=== PATIENT | male | born 1930 | race Caucasian/White ===

== ENCOUNTER 2016-11-26 13:51 | Emergency (ER) | payer MEDICARE, OTHER ==
[~2016-11-26 13:51] MED LIST: ASPIRIN PO; BENZONATATE PO; CARDIZEM CD PO; DILTIAZEM PO; FINASTERIDE PO; FINASTERIDE5 MG; GLUCOTROL PO; KCL PO; KEFLEX500 M1 PO; KEFLEX500 MG PO; LASIX PO; LIPITOR PO; LISINOPRIL PO; METFORMIN PO; NATEGLINIDE PO; POTASSIUM PO; TOPROL PO; TOPROL XL PO; UROXATRAL PO; UROXATRAL10 MG PO; WARFARIN PO; ZITHROMAX PO; ZOCOR PO
[2016-11-26] MEDS ORDERED: METFORMIN PO (14:01)
[2016-11-26] MEDS ORDERED: TOPROL XL100 MG PO (14:27)
[2016-11-26 15:12] LABS: BASOPHIL% 0.7 % (0-2.5); EOSINOPHIL# 0.2 X10e3 (0-0.7); EOSINOPHIL% 2.7 % (0.0-7.0); HEMOGLOBIN 9.6 gm/dL (13.0-16.0); LYMPHOCYTE# 0.7 X10e3 (1.0-3.5); LYMPHOCYTE% 12.7 % (17.0-45.0); MEAN CORPUSCULAR HEMOGLOBIN 26.9 PG (28-34); MEAN CORPUSCULAR HGB CONC 33.2 g/dL (30-36); MEAN PLATELET VOLUME 8.8 FL (6.5-11.5); MONOCYTE# 0.6 X10e3 (0-1.0); MONOCYTE% 9.7 % (3.0-12.0); NEUTROPHIL# 4.3 X10e3 (1.5-7.1); NEUTROPHIL% 74.2 % (40-75); PLATELET COUNT 216 X10e3 (140-420); RED BLOOD COUNT 3.58 X10e (3.90-5.60); RED CELL DISTRIBUTION WIDTH 16.7 % (11.0-15.5); WHITE BLOOD COUNT 5.9 X10e3 (4.0-10.5)
[2016-11-26 15:25] LABS: DIFF IND NO
[2016-11-26 15:27] LABS: INR 4.2; PROTHROMBIN TIME (PATIENT) 48.3 SECONDS (9.5-12.4)
[2016-11-26 15:34] LABS: BUN/CREATININE RATIO 16.66; CALCIUM SERUM 8.7 mg/dL (8.4-10.2); CREATININE SERUM 1.2 mg/dL (0.6-1.4); GLOM FILT RATE Estimated 54.1 mL/min (>60); POTASSIUM 4.1 mmol/L (3.5-5.1); URIC ACID 7.5 mg/dL (2.6-7.2)
== END 2016-11-26 16:46 | disposition home or self-care (01) ==
LOC: SED 13:51
PROVIDERS: Emergency Medicine
DX: L03.115 Cellulitis of right lower limb (principal); M10.9 Gout, unspecified; D64.9 Anemia, unspecified; I48.91 Unspecified atrial fibrillation; E11.9 Type 2 diabetes mellitus without complications; E78.5 Hyperlipidemia, unspecified; Z95.1 Presence of aortocoronary bypass graft; Z90.49 Acquired absence of other specified parts of digestive tract; Z79.899 Other long term (current) drug therapy; Z79.84 Long term (current) use of oral hypoglycemic drugs
CPT/HCPCS: 36415; 80048; 84550; 85025; 85610; 96365; 96375; 99283; J1885